=== PATIENT | male | born 1960 | race Caucasian/White ===

== ENCOUNTER → 2021-04-26 | Day surgery (SDC) | payer MEDICAID ==
[2021-04-21 11:58] LABS: Hematocrit 31.1 % (41.0-53.0); Hemoglobin 11.2 g/dL (13.5-17.5); Mean Corpuscular Hemoglobin 33.3 pg (28.0-32.0); Mean Corpuscular Hgb Conc. 36.1 g/dL (32.0-36.0); Mean Corpuscular Volume 92.2 fL (80.0-100.0); Red Blood Cells 3.37 10^6/uL (4.5-5.90); Red Cell Distribution Width 12.8 % (11.8-14.3); White Blood Cell 6.1 10^3/uL (4.4-10.8)
[2021-04-21 12:04] LABS: Band Neutrophils % (manual) 0; Blast Cells 0; Metamyelocytes % 0; Myelocytes % 0; Promyelocytes % 0; Reactive Lymphocytes 0
[2021-04-21 12:14] LABS: Urine Bacteria FEW /hpf (None Seen); Urine Blood Negative /uL (Negative); Urine Specific Gravity 1.016 (1.001-1.035); Urine WBC 66 /hpf (0 - 3)
[2021-04-21 12:27] LABS: Basophils % (manual) 1 (0.0-2.0); Eosinophils % (manual) 3 (0-7); Lymphocytes % (manual) 55 (10.0-50.0); Monocytes % (manual) 11 (0-12)
[2021-04-21 12:36] LABS: Potassium 4.3 mmol/L (3.5-5.1)
[2021-04-21 12:55] LABS: Albumin 3.5 g/dL (3.4-5.0); BUN/Creatinine Ratio 16.4; Bilirubin, Total 0.3 mg/dL (0.2-1.0); Calcium 9.8 mg/dL (8.5-10.1); Total Protein 7.3 g/dL (6.4-8.2)
[~2021-04-26] VITALS: Ht 170.2 cm; Wt 47.6 kg
[~2021-04-26] MED LIST: ATEN-60 PO; ATO40T PO; CLOP75TA70 PO; GLIP5TAB12 PO; LIDOCAINE VISCOUS 2% 15ML UD ONE; LISI2.5T47 PO; METF-372 PO; MIDAZOLAM HCL 5 MG/ML-1ML VIAL ONE; PANT1INJ3 PO; SODIUM CHLORIDE LOCK 10 ML ONE; diphenhdrAMINE HCL 50 MG/1 ML VL ONE; fentaNYL CITRATE 100 MCG/2 ML VL ONE
[2021-04-26 13:55] VITALS: BP 134/74
== END | disposition home or self-care (01) ==
LOC: GI 11:50
PROVIDERS: ATTEND Internal Medicine Gastroenterology
DX: R10.13 Epigastric pain (principal); K44.9 Diaphragmatic hernia without obstruction or gangrene; K29.50 Unspecified chronic gastritis without bleeding; K31.89 Other diseases of stomach and duodenum; I10 Essential (primary) hypertension; E11.9 Type 2 diabetes mellitus without complications; E78.5 Hyperlipidemia, unspecified; Z98.890 Other specified postprocedural states; Z96.89 Presence of other specified functional implants; Z20.822 Contact with and (suspected) exposure to COVID-19
CPT/HCPCS: 36415; 43239; 80053; 81001; 82962; 85007; 85027; J2250; J3010; J7030; U0003; 99152

== ENCOUNTER 2022-01-31 12:05 | Day surgery (SDC) | payer MEDICAID ==
[2022-01-29 10:45] LABS: Basophils # (auto) 0.1 10 ^3/uL (0-0.2); Basophils % (auto) 0.8 % (0.0-2.0); Eosinophils # (auto) 0.3 10 ^3/uL (0-0.8); Hematocrit 31.3 % (41.0-53.0); Hemoglobin 10.5 g/dL (13.5-17.5); Lymphocytes # (auto) 4.3 10 ^3/uL (0.4-5.4); Lymphocytes % (auto) 47.5 % (10.0-50.0); Mean Corpuscular Hemoglobin 30.4 pg (28.0-32.0); Mean Corpuscular Hgb Conc. 33.7 g/dL (32.0-36.0); Mean Corpuscular Volume 90.2 fL (80.0-100.0); Monocytes # (auto) 0.7 10 ^3/uL (0-1.3); Monocytes % (auto) 7.5 % (0.0-12.0); Neutrophils # (auto) 3.7 10 ^3/uL (1.6-8.6); Neutrophils % (auto) 41.2 % (37.0-80.0); Nucleated Red Blood Cells % 0.2 %; Red Blood Cells 3.47 10^6/uL (4.5-5.90); Red Cell Distribution Width 13.4 % (11.8-14.3); White Blood Cell 9.1 10^3/uL (4.4-10.8)
[2022-01-29 11:09] LABS: Potassium 4.9 mmol/L (3.5-5.1)
[2022-01-29 11:13] LABS: INR 0.99 (0.9-1.15); Partial Thromboplastin Time 27.3 sec (23.6-33.0)
[2022-01-29 11:17] LABS: Albumin 3.5 g/dL (3.4-5.0); BUN/Creatinine Ratio 15.6; Bilirubin, Total 0.2 mg/dL (0.2-1.0); Calcium 8.9 mg/dL (8.5-10.1); Total Protein 7.6 g/dL (6.4-8.2)
[~2022-01-31 12:05] MED LIST changes: -ATEN-60 PO; -LIDOCAINE VISCOUS 2% 15ML UD ONE; -MIDAZOLAM HCL 5 MG/ML-1ML VIAL ONE; -SODIUM CHLORIDE LOCK 10 ML ONE; -diphenhdrAMINE HCL 50 MG/1 ML VL ONE; -fentaNYL CITRATE 100 MCG/2 ML VL ONE
[2022-01-31] MEDS ORDERED: SODIUM CHLORIDE LOCK 10 ML ONE (13:20)
[2022-01-31] MEDS: fentaNYL CITRATE 100 MCG/2 ML VL ONE ×3 (13:28→13:34)
[2022-01-31] MEDS: diphenhdrAMINE HCL 50 MG/1 ML VL ONE ×2 (13:28→13:31)
[2022-01-31] MEDS: MIDAZOLAM HCL 5 MG/ML-1ML VIAL ONE ×4 (13:28→13:45)
[2022-01-31 14:10] VITALS: BP 109/67
== END 2022-01-31 14:26 | disposition home or self-care (01) ==
LOC: GI 12:05
PROVIDERS: ATTEND Internal Medicine Gastroenterology
DX: Z12.11 Encounter for screening for malignant neoplasm of colon (principal); K62.1 Rectal polyp; K64.8 Other hemorrhoids; K63.89 Other specified diseases of intestine; I10 Essential (primary) hypertension; E11.9 Type 2 diabetes mellitus without complications; E78.5 Hyperlipidemia, unspecified; M19.90 Unspecified osteoarthritis, unspecified site; I25.2 Old myocardial infarction; Z86.73 Personal history of transient ischemic attack (TIA), and cerebral infarction without residual deficits; Z87.19 Personal history of other diseases of the digestive system; Z90.49 Acquired absence of other specified parts of digestive tract; Z95.5 Presence of coronary angioplasty implant and graft; Z86.16 Personal history of COVID-19
CPT/HCPCS: 36415; 45380; 80053; 82962; 85025; 85610; 85730; 88305; J1200; J2250; J3010; J7030; U0003; 99152

== ENCOUNTER → 2022-08-30 | Outpatient (CLI) | payer MEDICAID ==
[2022-08-30 09:41] LABS: % Iron Saturation 22.8 % (20-55)
[2022-08-30 09:50] LABS: Folate (Folic Acid) 16.48 ng/mL (5.38-24)
== END | disposition home or self-care (01) ==
LOC: LAB 08:44
PROVIDERS: ATTEND Internal Medicine Gastroenterology
DX: D64.9 Anemia, unspecified (principal)
CPT/HCPCS: 82607; 82746; 83540; 83550